=== PATIENT | female | born 1965 | race Caucasian/White ===

== ENCOUNTER 2016-08-23 22:28 | Emergency (ER) | payer BC ==
[~2016-08-23] VITALS: Ht 160 cm; Wt 112.9 kg
[2016-08-23 23:22] LABS: PLATELET COUNT 268 x10^3mcL (130-400); RED CELL DISTRIBUTION WIDTH 13.2 % (11.5-14.5)
[2016-08-23 23:38] LABS: CALCIUM 9.8 mg/dL (8.5-10.1); CARBON DIOXIDE 24.7 mmol/L (21-32); CREATININE SERUM 1.2 mg/dL (0.6-1.0); POTASSIUM SERUM 3.9 mmol/L (3.5-5.1)
[2016-08-23 23:43] LABS: ALBUMIN 4.4 g/dL (3.4-5.0); BILIRUBIN TOTAL 0.39 mg/dL (0.20-1.00); TOTAL PROTEIN, SERUM 8.7 g/dL (6.4-8.2)
[2016-08-24 00:03] LABS: BAND NEUTROPHIL 14 % (0-10); BASOPHIL 0 % (0-2); MONOCYTE 6 % (0-7); SEGMENTED NEUTROPHILS 69 % (37-75)
[2016-08-24 00:04] LABS: rbc morphology (normal/abnorm) ABNORMAL (NORMAL)
[2016-08-24 00:05] LABS: PLATELET MORPHOLOGY PLATELETS NORMAL
[2016-08-24 03:14] VITALS: BP 132/84
== END 2016-08-24 03:14 | disposition home or self-care (01) ==
LOC: ED 22:28
PROVIDERS: Emergency Medicine
DX: R11.2 Nausea with vomiting, unspecified (principal); R19.7 Diarrhea, unspecified; R10.9 Unspecified abdominal pain
CPT/HCPCS: J0500; J1885; J2270; J2405; J7030